=== PATIENT | female | born 1975 ===

== ENCOUNTER → 2023-12-13 08:49 | Outpatient (REF) | payer BC, SELFPAY | LOC: WDC 08:49 | PROVIDERS: ATTENDING PHYSICIAN Obstetrics & Gynecology Gynecology; FAMILY PHYSICIAN Nurse Practitioner Adult Health | DX: Z12.31 Encounter for screening mammogram for malignant neoplasm of breast (principal) | CPT/HCPCS: 77063; 77067 ==

== ENCOUNTER 2024-07-11 11:02 | Emergency (ER) | payer BC, SELFPAY ==
[2024-07-11 11:03] VITALS: BP 136/90
[2024-07-11] MEDS: NSS 1000 IV (12:40)
[2024-07-11] MEDS: BENADRYL 50 MG IV (12:42)
[2024-07-11] MEDS: COMPAZINE 10 MG IV (12:45)
[2024-07-11] MEDS: ZOFRAN 4 MG IV (12:46)
--- NOTE | 2024-07-11 12:47 | ED.GENMED ---
History of Present Illness
General
Chief Complaint: Headache
Source: patient
Exam Limitations: none
Time Seen by Provider: 07/11/24 12:29
Nursing documentation reviewed up to this point in time: agreed with
History of Present Illness
History of Present Illness:
49-year-old female with history of migraines states she woke up this morning with a headache around her whole head, she vomited twice, last emesis was 30 minutes ago. No recent head injury. She denies change in vision. She states her typical
headaches are on the right side of her head, this one is the entire head. She did see her PCP at and had an outpatient MRI on 06/02 due to her migraines which showed 'some type of abnormality.'
Past History
Past History
ED Past Medical History: Other (Migraine H/As)
ED Past Surgical History: and Tonsilectomy
Social History
Tobacco: Non-smoker
Alcohol: None
Personal:
Living: with family
Employment: Employed
Review of Systems
Review of Systems
Allergies reviewed?: Yes
All Other Systems: ROS reviewed and negative except as documented in HPI and ROS
Constitutional: Denies fever
Respiratory: Denies trouble breathing
Cardiac: Denies chest pain
ABD/GI: Reports nausea and vomiting; Denies abdominal pain
: Reports no symptoms
Musculoskeletal: Reports no symptoms
Skin: Reports no symptoms
Neurological: Reports headache; Denies dizzy, weakness or numbness
Phy Exam
Physical Exam
Physical Exam:
GENERAL: No acute distress. A&Ox3.
CONSTITUTIONAL: Afebrile.
EYES: PERRL, conjunctivae normal
Neck: Supple
ENMT: moist mucus membranes, Pharynx nl
RESPIRATORY: Regular respirations, nonlabored, lungs clear.
CARDIOVASCULAR: Regular rate and rhythm, no murmurs, no rubs.
GI: Soft, nontender, normal BS
MUSCULOSKELETAL: Moves with ease. Well perfused.
SKIN: Warm, dry, pink
PSYCH: Normal mood and affect. Well kept, interactive and appropriate
NEUROLOGIC: Awake, alert and oriented. No focal neurological deficits
Course
Orders/Labs/Results
Orders:
Orders
07/11/24 12:31
0.9% Sodium Chloride 1000 ml [Nss] 1,000 ml IV BOLUS
Diphenhydramine [Benadryl] 50 mg IV NOW STA
Prochlorperazine [Compazine] 10 mg IV NOW STA
07/11/24 12:38
Ondansetron Injectable [Zofran] 4 mg IV NOW STA
07/11/24 12:43
Prochlorperazine [Compazine] 10 mg .ROUTE .STK-MED ONE
07/11/24 14:19
Dexamethasone Sod Phosphate [Decadron] 10 mg IV NOW STA
07/11/24 14:24
Electrocardiogram (*1) Urgent
Reason for Study: QTc Monitoring
EKG- Treatment ONCE
Vital Signs
Initial and Last Documented VS:
Initial Vital Signs
Temp Pulse Resp BP Pulse Ox
98.4 F 81 18 136/90 100
07/11/24 11:03 07/11/24 11:03 07/11/24 11:03 07/11/24 11:03 07/11/24 11:03
Last Documented Vital Signs
Temp Pulse Resp BP Pulse Ox
98.4 F 69 16 122/69 99
07/11/24 11:03 07/11/24 14:31 07/11/24 14:31 07/11/24 14:31 07/11/24 14:31
MDM/Problems Addressed
Differential Diagnosis Includes:
migraine
MDM/Problems Addressed:
49-year-old female with history of migraines states she woke up this morning with a headache around her whole head, she vomited twice, last emesis was 30 minutes ago. No recent head injury. She denies change in vision. She states her typical
headaches are on the right side of her head, this one is the entire head. She did see her PCP at and had an outpatient MRI on 06/02 due to her migraines which showed 'some type of abnormality.'
(Report emailed to me and scanned into chart)
No significant acute findings, a few punctate and patchy foci of T2/FLAIR hyperintensities in the subcortical and periventricular white matter predominantly bifrontal dissolution is nonspecific but could be related to mild microangiopathy, migraine
syndromes, demyelination, syndromes etc. no mass effect no acute findings
2:15 p.m.
After IV meds and fluids, pt feeling much better, H/A from 05/26 to now 11/26
She has neuro appt scheduled for Dec at [facility], she will call and see if it can be moved up.
*EKG
Interpreted by ED Provider?: Yes
EKG Intrepretation Date: 07/11/24
Interpretation: normal
Comparison EKG: no comparison EKG present
Rate: normal
Rhythm: sinus
[place]: normal axis
Interval: normal interval
QRS Pattern: normal QRS
Ischemia: no ischemia
*Critical Care Note
Total Time (30-74mins, 75-104mins- exclusive of procedures): Not Applicable
ED Attending Note
-
Portions of this chart may have been created with voice recognition software.� Occasional wrong word or��sound alike� substitutions may have occurred due to the inherent limitations of voice recognition software.
Discharge Plan
Departure
Patient Disposition: Home (Routine Discharge)
Date of Disposition: 07/11/24
Time of Disposition: 14:31
Patient with high blood pressure during this ER visit?: No
Condition: Good
Discharge Problem:
Headache
Instructions: Migraines (DC)
Prescriptions:
New
ondansetron 4 mg tablet,disintegrating
4 mg PO Q8H PRN (Reason: nausea and vomiting) 4 Days Qty: 10 0RF
zvvciqhlki-[id number]-ymua [Fioricet] 50-300-40 mg capsule
1 cap PO Q8H MDD Headache pain PRN (Reason: Pain) Qty: 10 0RF
Referrals:
Mirian Bradley CRNP [Family Provider] -
Activity Restrictions/Additional Instructions:
As we discussed, call your neurologist office at [facility] and see if they can move your appointment up for call you with any cancellations and get you in earlier than September.
I sent a prescription for Zofran to your pharmacy to use as needed for nausea and vomiting and a prescription for Fioricet to use for headache as needed.
Interventions
Interventions:
*Risk Screen - Suicide Last Done: 07/11/24 11:03
*General Assessment Last Done: 07/11/24 11:03
*Neglect/Abuse Screening Last Done: 07/11/24 11:03
ED- Fall Risk Assessment Last Done: 07/11/24 11:44
*Nursing Disposition Last Done: 07/11/24 14:48
ED- Neurological Assessment Last Done: 07/11/24 11:44
Discharge Date and Time
Discharge Date/Time: 07/11/24 14:53
Print Language: FRISIAN
--- NOTE | 2024-07-11 12:59 | EDRN ---
Pt given a warm blanket and lights dimmed.
[2024-07-11 13:00] VITALS: BP 125/74
[2024-07-11 13:53] VITALS: BP 112/65
[2024-07-11] MEDS: DECADRON 10 MG IV (14:28)
[2024-07-11 14:31] VITALS: BP 122/69
== END 2024-07-11 14:53 | disposition home or self-care (01) ==
LOC: EMR 11:02
PROVIDERS: EMERGENCY PHYSICIAN Emergency Medicine; FAMILY PHYSICIAN Nurse Practitioner Adult Health
DX: R51.9 Headache, unspecified (principal); R11.2 Nausea with vomiting, unspecified; Z88.6 Allergy status to analgesic agent; Z88.5 Allergy status to narcotic agent
CPT/HCPCS: 99284; 96374; 96375 ×2; 96361; 93005

== ENCOUNTER → 2024-12-18 18:08 | Outpatient (REF) | payer BC, SELFPAY | LOC: WDC 18:08 | PROVIDERS: ATTENDING PHYSICIAN Obstetrics & Gynecology Gynecology; FAMILY PHYSICIAN Nurse Practitioner Adult Health | DX: Z12.31 Encounter for screening mammogram for malignant neoplasm of breast (principal) | CPT/HCPCS: 77063; 77067 ==